=== PATIENT | female | born 1995 | race American Indian/Alaskan Native ===

== ENCOUNTER 2017-02-19 14:10 | Emergency (ER) | payer SELFPAY ==
[2017-02-19] MEDS ORDERED: MOTRIN PO ONE (14:39)
[2017-02-19] MEDS ORDERED: TYLENOL ONE (14:42)
[2017-02-19] MEDS ORDERED: NACL 0.9% 500 ML 500 ML IV ONE (14:45)
[2017-02-19] MEDS ORDERED: TYLENOL PO ONE ×2 (14:46→21:50)
[2017-02-19 15:27] LABS: Basophils % (Auto) 0.4 % (0.0-1.8); Eosinophils % (Auto) 0.3 % (0.0-4.3); Hematocrit 33.7 % (30.3-42.9); Hemoglobin 10.8 gm/dl (10.1-14.3); Mean Corpuscular HGB Conc 32 % (30-34); Mean Corpuscular Volume 79 fl (79-97); Platelet Count 221 K/mm3 (140-440); Red Blood Count 4.26 M/mm3 (3.65-5.03); Red Cell Distribution Width 17.8 % (13.2-15.2); White Blood Count 6.6 K/mm3 (4.5-11.0)
[2017-02-19 15:28] LABS: Mean Corpuscular Hemoglobin 25 pg (28-32)
[2017-02-19 15:36] LABS: INR 0.96 (0.87-1.13)
[2017-02-19 15:48] LABS: Alanine Aminotransferase 11 units/L (7-56); Albumin/Globulin Ratio 1.1 %; Alkaline Phosphatase 26 units/L (35-129); Blood Urea Nitrogen 9 mg/dL (7-17); Calcium 9.3 mg/dL (8.4-10.2); Carbon Dioxide 23 mmol/L (22-30); Glucose 80 mg/dL (65-100); Total Protein 7.8 g/dL (6.3-8.2)
[2017-02-19 15:49] LABS: Anion Gap 19 mmol/L; Chloride 100.5 mmol/L (98-107); Potassium 3.8 mmol/L (3.6-5.0); Sodium 139 mmol/L (137-145)
[2017-02-19] MEDS ORDERED: NACL 0.9% 1000 ML 1,000 ML IV ONE (23:52)
--- NOTE | 2017-02-19 23:59 | Emergency Department Report ---
ED Fever HPI - General Chief Complaint: Fever Stated Complaint: ABD PAIN Time Seen by Provider: 02/19/17 23:56 - History of Present Illness Initial Comments: Patient is a 21-year-old female with no past medical history presenting today because of fever and vomiting and diarrhea. Patient states that symptoms started yesterday with some diarrhea and fevers and chills. Today she started having diffuse body aches as well as vomiting and diarrhea. She denies having any current nausea however. Has not had any recent travel. No recent sick contacts. Has tried Tylenol and Motrin with some improvement in pain but still present. ED Review of Systems ROS: Stated complaint: ABD PAIN Other details as noted in HPI Comment: All other systems reviewed and negative Constitutional: chills, fever Respiratory: denies: cough, shortness of breath Cardiovascular: denies: chest pain Gastrointestinal: nausea, vomiting, diarrhea Genitourinary: denies: urgency, dysuria, frequency Skin: denies: rash Psychiatric: denies: anxiety ED Past Medical Hx - Past Medical History Hx Hypertension: Yes - Surgical History Past Surgical History?: No - Social History Smoking Status: Never Smoker Substance Use Type: None - Medications Home Medications: Home Medications Medication Instructions Recorded Confirmed Last Taken Type Acetaminophen [Tylenol] 650 mg PO Q6HR PRN #20 tablet 02/20/17 Unknown Rx Ibuprofen [Motrin] 600 mg PO Q8H PRN #14 tablet 02/20/17 Unknown Rx Ondansetron [Zofran Odt] 4 mg PO Q8HR #8 tab.rapdis 02/20/17 Unknown Rx ED Physical Exam - General Limitations: No Limitations General appearance: alert, in no apparent distress - ENT ENT exam: Present: normal exam - Neck Neck exam: Present: normal inspection - Respiratory Respiratory exam: Present: normal lung sounds bilaterally. Absent: respiratory distress - Cardiovascular Cardiovascular Exam: Present: regular rate, normal rhythm - GI/Abdominal GI/Abdominal exam: Present: soft. Absent: distended, tenderness - Neurological Exam Neurological exam: Present: alert, oriented X3 - Psychiatric Psychiatric exam: Present: normal affect ED Course Vital Signs 02/19/17 02/19/17 02/19/17 14:32 14:47 15:47 Temperature 103.0 F H Pulse Rate 110 H Respiratory 24 24 20 Rate Blood Pressure 71/45 O2 Sat by Pulse 100 Oximetry 05/02/19/17 02/19/17 21:28 21:30 21:39 Temperature 100.6 F H Pulse Rate 80 Respiratory Rate Blood Pressure 141/82 O2 Sat by Pulse 99 98 Oximetry 02/19/17 02/19/17 02/19/17 21:58 22:00 22:04 Temperature Pulse Rate 79 Respiratory 22 28 H 24 Rate Blood Pressure 141/82 O2 Sat by Pulse 100 100 Oximetry 02/19/17 02/19/17 02/19/17 22:30 23:00 23:30 Temperature Pulse Rate 83 83 89 Respiratory 25 H 29 H 22 Rate Blood Pressure 141/82 141/82 141/82 O2 Sat by Pulse 100 100 100 Oximetry 02/19/17 02/20/17 02/20/17 23:48 00:00 00:30 Temperature Pulse Rate 70 74 83 Respiratory 10 L 13 19 Rate Blood Pressure 141/82 141/82 141/82 O2 Sat by Pulse 99 100 100 Oximetry 02/20/17 02/20/17 02/20/17 00:50 01:00 01:30 Temperature 98.1 F Pulse Rate 86 Respiratory 9 L Rate Blood Pressure 141/82 123/89 O2 Sat by Pulse 100 100 Oximetry 02/20/17 02/20/17 02/20/17 01:55 02:00 02:30 Temperature Pulse Rate 67 Respiratory 18 22 Rate Blood Pressure 123/89 123/89 O2 Sat by Pulse 100 99 Oximetry ED Medical Decision Making - Lab Data Result diagrams: 02/19/17 14:52 02/19/17 14:52 - Medical Decision Making Likely a viral infection, labs pre-ordered Lab showed negative lactic acid 2, IV fluids ordered as patient has not urinated in some time and feels dehydrated, UA and U preg pending EKG done at triage and shows normal sinus rhythm at a rate of [address] changes, normal axis not producing urine sample beta hcg negative no urinary symptoms vs improved will discharge home Critical care attestation.: If time is entered above; I have spent that time in minutes in the direct care of this critically ill patient, excluding procedure time. ED Disposition Clinical Impression: Viral syndrome Disposition: DISCHARGED TO HOME OR SELFCARE Is pt being admited?: No Condition: Stable Instructions: Gastroenteritis (ED), Viral Syndrome (ED) Additional Instructions: Please follow up with the primary care physician in the next 3-5 days. Return to the ER if your symptoms significantly worsen or you develop new symptoms. Prescriptions: Acetaminophen [Tylenol] 650 mg PO Q6HR PRN #20 tablet PRN Reason: Pain Ibuprofen [Motrin] 600 mg PO Q8H PRN #14 tablet PRN Reason: Pain Ondansetron [Zofran Odt] 4 mg PO Q8HR #8 tab.jason Referrals: PRIMARY CARE, [Primary Care Provider] - 3-5 Days Forms: Work/School Release Form(ED)
[2017-02-20] MEDS ORDERED: TORADOL IV ONE (01:32)
[2017-02-20 02:24] VITALS: BP 123/89
--- NOTE | 2017-02-20 07:24 | XRay Report ---
AP CHEST: HISTORY: Sepsis AP view of the chest demonstrates a normal mediastinal and cardiac contour with clear lungs and normal bony and soft tissue structures. IMPRESSION: Unremarkable AP chest.
== END 2017-02-20 03:01 | disposition home or self-care (01) ==
LOC: ED 14:10
DX: B34.9 Viral infection, unspecified (principal); I10 Essential (primary) hypertension
CPT/HCPCS: 36415; 71010; 80053; 82140; 82805; 84703; 85025; 85610; 87040; 87400; 93005; 93010; 96361; 96374; 99284; J1885; J7030